=== PATIENT | male | born 1990 | race Caucasian/White ===

== ENCOUNTER 2017-04-07 23:16 | Emergency (ER) | payer BC ==
[2017-04-07 23:31] VITALS: BP 149/100
--- NOTE | 2017-04-08 00:06 | EDM.PDOC ---
ED HPI GENERAL MEDICAL PROBLEM - General Chief Complaint: General Stated Complaint: SEIZURE Time Seen by Provider: 04/07/17 23:35 Source of Information: Reports: Patient History Limitations: Reports: No Limitations - History of Present Illness INITIAL COMMENTS - FREE TEXT/NARRATIVE: 27 yo male who is not from here presents asking for an Rx for clonazepam. Says he missed his appt a couple weeks ago and ran out of his meds 2 days ago. Has been drinking ETOH(drinks daily) and smoking marijuana. He has no Rx or empty pill bottle with his name on it to prove he is on this med. Comes in at this late hour only because he cannot sleep. Supposedly had a seizure earlier tonight , but 911 was not called. Use Klonopin for anxiety. Onset: Today Onset Date: 04/08/17 Severity: Mild Improves with: Reports: None Worsens with: Reports: None Context: Reports: Other (? 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 (see below) (ETOH/marijuana use) - Related Data Allergies Allergy/AdvReac Type Severity Reaction Status Date / Time No Known Allergies Allergy Verified 04/07/17 23:31 Home Meds: Home Meds QUEtiapine [SEROquel] 100 mg PO BEDTIME 04/07/17 [History] clonazePAM [Klonopin] 1 mg PO BID 04/07/17 [History] Social & Family History - Tobacco Use Smoking Status *Q: Current Every Day Smoker Years of Tobacco use: 10 Packs/Tins Daily: 1 - Alcohol Use Days Per Week of Alcohol Use: 7 Number of Drinks Per Day: 3 Total Drinks Per Week: 21 - Recreational Drug Use Recreational Drug Use: No ED ROS GENERAL - Review of Systems Review Of Systems: See Below Constitutional: Reports: No Symptoms Neurological: Reports: Other (? seizure, self-limiting) Psychiatric: Reports: Other (insomnia) ED EXAM, GENERAL - Physical Exam Exam: See Below Exam Limited By: Uncooperative (not fully honest. No records or documentation.) General Appearance: Alert, WD/WN, No Apparent Distress, Other (looks like he is under the influence of something, ? alcohol ? marijuana, both?) Eye Exam: Bilateral Eye: Conjunctival Injection Ears: Hearing Grossly Normal Ear Exam: Bilateral Ear: Auricle Normal Nose: Normal Inspection, No Blood Throat/Mouth: Normal Lips, Normal Voice, No Airway Compromise, Other (No evidence of tongue biting.) Head: Atraumatic, Normocephalic Neck: Normal Inspection Respiratory/Chest: No Respiratory Distress, No Accessory Muscle Use Cardiovascular: Regular Rate, Rhythm (Male) Exam: Other (No sign of urinary incontinence.) Extremities: Normal Inspection Neurological: Alert, Oriented, No Motor/Sensory Deficits, Other (No tremors) Psychiatric: Normal Affect, Normal Mood Skin Exam: Warm, Dry, Intact, Normal Color, No Rash Course - Vital Signs Text/Narrative:: Became verbally abusive when his request for clonazepam was refused. Eventually left the ER after an argument. Female friend persisted until local police were called. Last Recorded V/S: Last Vital Signs Temp 36.3 C 04/07/17 23:20 Pulse 103 H 04/07/17 23:20 Resp 18 04/07/17 23:20 BP 149/100 H 04/07/17 23:20 Pulse Ox 98 04/07/17 23:20 Departure - Departure Time of Disposition: 23:55 Disposition: Home, Self-Care 01 Condition: Good Clinical Impression: Drug-seeking behavior - Discharge Information Referrals: PCP,None [Primary Care Provider] - Forms: ED Department Discharge Additional Instructions: Recheck with your doctor for your Rx needs.
== END 2017-04-07 23:40 | disposition home or self-care (01) ==
LOC: EDBD 23:16 → FB.ED 23:16
DX: Z76.5 Malingerer [conscious simulation] (principal); F41.9 Anxiety disorder, unspecified; F17.210 Nicotine dependence, cigarettes, uncomplicated
CPT/HCPCS: 99282